=== PATIENT | male | born 1985 | race Caucasian/White ===

== ENCOUNTER 2016-11-04 23:44 | Emergency (ER) | payer OTHER ==
[~2016-11-04] VITALS: Ht 180.3 cm; Wt 83.2 kg
[~2016-11-04 23:44] MED LIST: ANAPROX DS550 M1 PO; BENTYL10 MG PO; CELEXA20 MG PO; ERYTHROMYCIN O3.5 GM LEFT EYE; IBU-200200 MG PO; MOTRIN600 MG PO; MOTRIN800 MG PO; NO MEDS; NO ROUTINE MEDS; NOHOMEMEDS; NORCO 7.5/321 TABLET PO; PEN-VEE K,VEET500 MG PO; PROTONIX40 MG PO; RISPERDAL0.25 MG PO; ULTRACET1 TABLET PO; ULTRAM50 MG PO; VALIUM5 MG PO; VICODIN,LORT1 TABLET PO; ZOFRAN ODT4 MG PO; ZOFRAN4 MG PO
[2016-11-05 00:31] LABS: HEMATOCRIT 38.1 % (38.0-50.0); MCH 31.1 PG (29.0-34.0); MCHC 34.4 G/DL (30.0-36.0); MCV 90.5 FL (86-99); MEAN PLAT.VOLUME 13.4 uM^3 (9.0-12.4); PLATELET COUNT 129 K/uL (156-360); RBC DIS.WIDTH-CV 13.2 % (11.8-14.6); RED BLOOD COUNT 4.21 M/uL (4.00-5.50); WHITE BLOOD COUNT 9.3 K/uL (4.1-10.2)
[2016-11-05 00:42] LABS: CHLORIDE 104 mEq/L (99-109); POTASSIUM 3.7 mEq/L (3.7-5.4); SODIUM 138 mEq/L (136-147)
[2016-11-05 00:44] LABS: GLUCOSE 121 mg/dL (70-99)
[2016-11-05 00:45] LABS: ANION GAP 9 MEQ/L (2-14)
[2016-11-05 00:46] LABS: TOTAL BILIRUBIN 0.2 mg/dL (0.0-1.0)
[2016-11-05 00:47] LABS: ALKALINE PHOSPHATASE 82 IU/L (3-129)
[2016-11-05 00:48] LABS: GFR ESTIMATE (CALCULATED) > 59 mL/min/
[2016-11-05 00:49] LABS: UREA NITROGEN (BUN) 19 mg/dL (9-23)
[2016-11-05 01:21] VITALS: BP 130/79
== END 2016-11-05 01:42 | disposition home or self-care (01) ==
LOC: EXP 23:44 → EME 23:44 → EXP 11-05 01:42
PROVIDERS: Physician Assistant
DX: R25.1 Tremor, unspecified (principal); R25.2 Cramp and spasm; T50.905A Adverse effect of unspecified drugs, medicaments and biological substances, initial encounter; F31.9 Bipolar disorder, unspecified; F17.200 Nicotine dependence, unspecified, uncomplicated
CPT/HCPCS: 80053; 85027; 99281; 99284